=== PATIENT | female | born 1950 | race Caucasian/White ===

== ENCOUNTER → 2016-10-01 | Outpatient (CLI) | payer MEDICARE, OTHER ==
[~2016-10-01] MED LIST: ALBU0.08 NEB; ALBU6.7H INH; CYCL1TAB29 PO; DIOV40TA PO; DULO20 PO; FLUTI220I INH; GEMF600T PO; GLIP5TAB8 PO; Glucometer; LINA145C PO; MECL1TAB7 PO; METF500T PO; MONT10TA2 PO; MULT1TAB84 PO; MUPI2OIN TOPICAL; NEUR100C PO; OMEP20TA PO; OMEP40CA2 PO; SIMV10TA PO; VITA500C9 CHEW; ZOCO10TA PO; ZOFR4TAB PO; [UNRECOGNIZED DRUG - SUPPLY]; lancets; test strips
--- NOTE | 2016-10-06 10:52 | RSPPFT ---
DATE OF PROCEDURE: 10/01/16 COMMENTS: Spirometry with FVC of 2.0 at 74% of predicted, FEV1 of 1.7 at 83%, FEV1/FVC ratio is normal. Flow is normal at FEF 25-75. There is no response after bronchodilator treatment. Flow volume loop indicates a normal pattern. IMPRESSION: 1. Normal spirometry. 2. No response after bronchodilator treatment.
== END ==
LOC: HRSP 10:27
PROVIDERS: ATTEND Family Medicine
DX: J45.909 Unspecified asthma, uncomplicated (principal)
CPT/HCPCS: 94060